=== PATIENT | male | born 1970 | race Caucasian/White ===

== ENCOUNTER → 2017-03-26 | Outpatient (CLI) | payer MEDICARE ==
[~2017-03-26] MED LIST: 1-ME1LIQ PO; BISA10SU8 PR; CARB25TA PO; CELL500T PO; CLON1 PO; DOCU50SY2 PO; FISH100020 OR; METO100T PO; MINO10TA PO; NOVOLOGP2 SC; NYST100010 SS; PERC5TAB12 PO; PRED5TAB PO; PROG5CAP PO; SULF1TAB47 PO; VALG450 PO
== END ==
LOC: CLAB 08:28
DX: E11.65 Type 2 diabetes mellitus with hyperglycemia (principal); E55.9 Vitamin D deficiency, unspecified
CPT/HCPCS: 82043; 82306

== ENCOUNTER → 2017-09-24 | Outpatient (CLI) | payer MEDICARE | LOC: CLAB 08:37 | DX: E11.65 Type 2 diabetes mellitus with hyperglycemia (principal); E55.9 Vitamin D deficiency, unspecified | CPT/HCPCS: 82306 ==